=== PATIENT | female | born 1940 | race Caucasian/White ===

== ENCOUNTER → 2018-07-01 | Outpatient (CLI) | payer MEDICARE, BC ==
--- NOTE | 2018-07-14 10:18 | MM ---
Reason for exam: screening (asymptomatic). History: Patient is postmenopausal. Family history of breast cancer in paternal aunt at age 50. MG 3D Screening Mammo W/Cad Bilateral CC and MLO view(s) were taken. There are scattered fibroglandular densities. Enlarging anterior right breast nodule currently measuring 9 mm at the 10 o'clock position. ASSESSMENT: Incomplete: need additional imaging evaluation, BI-RAD 0 RECOMMENDATION: Ultrasound of the right breast.
== END ==
LOC: RADMAMWWP 13:02
PROVIDERS: ATTEND Family Medicine
DX: Z12.31 Encounter for screening mammogram for malignant neoplasm of breast (principal)
CPT/HCPCS: 77063; 77067

== ENCOUNTER → 2018-08-18 | Outpatient (CLI) | payer MEDICARE, BC ==
--- NOTE | 2018-08-18 10:59 | USB ---
Reason for exam: additional evaluation requested from abnormal screening. History: Patient is postmenopausal. Family history of breast cancer in paternal aunt at age 50. Physical Findings: Nurse Summary: palpable lump right breast at 9 o'clock (nurse cw). US Breast Workup Limited RT Right limited breast ultrasound including focal area of concern, retroareolar and axilla demonstrates a 1.0 x 0.7 x 0.6cm oval, mixed, hypoechoic, vascular lesion at 9 o'clock, suspicious and a 1.5 x 1.3 x 0.9cm oval, benign appearing node at the axilla. These results were verbally communicated with the patient and result sheet given to the patient on 08/18/18. ASSESSMENT: Suspicious, BI-RAD 4 RECOMMENDATION: Ultrasound core biopsy of the right breast. Called with mammographic findings and has scheduled an appointment for the patient for 08/21/18 at 11:[address] Huff. PRELIMINARY REPORT CALLED AND FAXED TO DR. HUFF ON 08/18/18.
== END ==
LOC: RADUSWWP 09:23
PROVIDERS: ATTEND Family Medicine
DX: R92.8 Other abnormal and inconclusive findings on diagnostic imaging of breast (principal)

== ENCOUNTER → 2018-09-15 | Day surgery (SDC) | payer MEDICARE, BC ==
[2018-09-15 11:24] VITALS: RESP 16; BMI 66.2
--- NOTE | 2018-09-15 13:12 | USB ---
EXAMINATION TYPE: US biopsy breast VAD RT, MG diagnostic mammo RT wo CAD DATE OF EXAM: 09/15/2018 CLINICAL HISTORY: R92.8 ABN MAMMO. TECHNIQUE: Ultrasound guided core biopsy of right breast. COMPARISON: 08/18/2018 and 07/01/2018. FINDINGS: The procedure of ultrasound guided core biopsy was explained to the patient. Benefits, alternatives, and risks were discussed. An informed consent was then obtained. Preprocedural timeout was performed. The patient was placed in supine positioning for imaging and for the procedure. The overlying skin was prepped and draped in usual sterile fashion. 10 cc of lidocaine buffered with bicarbonate was used as anesthetic into the skin and subcutaneous tissue up to the 1.0 x 0.6 x 0.7 cm mass at the 9:00 position within the right breast just deep to the skin surface. Under ultrasound guidance, a 12-gauge vacuum assisted biopsy gun device was used to obtain 3 core samples. Following this, a ribbon-shaped biopsy marker was left at the site of biopsy. The patient tolerated the procedure well without any immediate complication. The patient was kept in the radiology department for short stay after the procedure and then discharged home in stable condition. Postprocedural mammogram demonstrates that the biopsied mass corresponds to the mammographic mass. No biopsy marker migration is seen. IMPRESSION: Successful, uncomplicated ultrasound guided core biopsy of a 1.0 x 0.6 x 0.7 cm mass at the 9:00 position just deep to the skin surface, full pathology results to follow. 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 See Surgical Pathology Cancer Case Summary. 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 Recommendation Surgical consult of the right breast. CRYSTALD
[2018-09-15 13:31] VITALS: BP 148/66; PULSE 67; TEMP 98.1
== END | disposition home or self-care (01) ==
LOC: RADUSWWP 11:05
PROVIDERS: ATTEND Family Medicine
DX: C50.911 Malignant neoplasm of unspecified site of right female breast (principal)
CPT/HCPCS: 77065; 19083; A4648; J2001; 88305; 88341; 88342

== ENCOUNTER → 2018-09-25 | Outpatient (CLI) | payer MEDICARE, BC ==
[2018-09-25 16:26] VITALS: BP 170/95; PULSE 81; RESP 18; TEMP 98.1; BMI 66.2
--- NOTE | 2018-09-25 16:53 | P.GSHP ---
History of Present Illness H&P Date: 09/25/18 Chief Complaint: right breast cancer Gwendolyn is a 78-year-old white female who presents for breast examination. She underwent a bilateral mammogram on which revealed an area of concern in the right breast. An ultrasound was subsequently performed and the lesion approximately 1 cm in size was identified. A biopsy of this area was performed. The pathology was positive for infiltrating ductal carcinoma. Additionally a small area approximately 1.5 cm in the axilla was noted. This appeared benign radiographically. The patient states that prior to the mammogram she did not feel anything in her breast, however subsequent to the mammogram she does feel some nodularity in her breasts. Family History: dad: stomach 2 paternal aunts: breast paternal aunt: ovarian Hormonal history: Menarche: 14 : 2, children 2, first at 20, breast fed: yes menpause: 49 BCP: short time than tubal only 5 months hormones: none Past surgical history: 1. Tubal ligation Past medical history: Hypertension High cholesterol Social History: smoke: none alcohol: none drugs: none - Constitutional Constitutional: Denies chills, Denies fever - EENT Eyes: denies blurred vision, denies pain Ears: deny: decreased hearing, tinnitus Ears, nose, mouth and throat: Denies headache, Denies sore throat - Breasts Breasts: bilateral: as per HPI - Cardiovascular Cardiovascular: Reports high blood pressure, Denies chest pain, Denies shortness of breath - Respiratory Respiratory: Denies cough, Denies 7 - Gastrointestinal Gastrointestinal: Denies abdominal pain, Denies diarrhea, Denies nausea, Denies vomiting - Genitourinary (Female) Genitourinary: Denies dysuria, Denies hematuria - Menstruation Menstruation: Reports postmenopausal - Musculoskeletal Comment: arthritis - Integumentary Integumentary: Denies pruritus, Denies rash - Neurological Neurological: Denies numbness, Denies weakness - Psychiatric Psychiatric: Denies depression - Endocrine Comment: boarderline diabetic Endocrine: Denies fatigue, Denies weight change - Hematologic/Lymphatic Comment: none - Allergic/Immunologic Allergic/Immunologic: Reports as per HPI Past Medical History Past Medical History: Diabetes Mellitus, Hyperlipidemia, Hypertension History of Any Multi-Drug Resistant Organisms: None Reported Past Surgical History: No Surgical Hx Reported Past Anesthesia/Blood Transfusion Reactions: No Reported Reaction Past Psychological History: No Psychological Hx Reported Smoking Status: Never smoker Past Alcohol Use History: None Reported Past Drug Use History: None Reported Medications and Allergies Home Medications Medication Instructions Recorded Confirmed Type Atenolol/Chlorthalidone 1 each PO DAILY 09/01/18 09/25/18 History [Atenolol-Chlorthalidone 50-25] Moexipril HCl [Univasc] 15 mg PO DAILY 09/01/18 09/25/18 History Simvastatin [Zocor] 20 mg PO HS 09/01/18 09/25/18 History metFORMIN HCL 1,000 mg PO DAILY 09/01/18 09/25/18 History Allergies Allergy/AdvReac Type Severity Reaction Status Date / Time No Known Allergies Allergy Verified 09/25/18 16:26 Surgical - Exam Vital Signs Temp Pulse Resp BP Pulse Ox 98.1 F 81 18 170/95 95 09/25/18 16:22 09/25/18 16:22 09/25/18 16:22 09/25/18 16:22 09/25/18 16:22 BMI 30 - General well developed, well nourished, no distress - Eyes normal ocular movement - ENT no hearing loss, no congestion - Neck no masses, trachea midline - Respiratory normal respiratory effort, clear to auscultation - Cardiovascular Rhythm: regular Heart Sounds: normal: S1, S2 - Abdomen Abdomen: soft, non tender, no guarding, no rigid, no rebound - Integumentary normal turgor - Musculoskeletal normal gait - Psychiatric oriented to time, oriented to person, oriented to place, speech is normal, memory intact breast exam: Right breast: Fibrocystic breast changes, periareolar region at 9:00 increased nodularity, no other dominant masses or nodules of concern Right axilla: No adenopathy of concern Left breast: Fibrocystic breast changes, multiple positional exam no dominant masses or nodules of concern Left axilla: No adenopathy of concern Results Mammogram and ultrasound results reviewed Assessment and Plan Assessment: Impression: 1. Radiographic abnormality right breast, biopsy positive for invasive ductal carcinoma right side 2. Fibrocystic breast changes 3. Family history of cancer 4. Hypertension 5. Borderline diabetes The risks and benefits of surgery have been discussed with the patient. The patient would prefer to have a lumpectomy. She understands that I may have to take a portion of the nipple area complex secondary to the location of the tumor. She also understands the risks and benefits of sentinel node biopsy possible axillary node dissection. She wishes to be scheduled in the near future. Her case will be presented at tumor board. Plan: 1. Presentation of case at tumor board 2. right breast Needle localization lumpectomy, sentinel node biopsy possible axillary node dissection 3. medical clearance cc: DR. Huff
== END ==
LOC: WWCWWP 15:44
PROVIDERS: ATTEND Surgery
DX: Z53.9 Procedure and treatment not carried out, unspecified reason (principal)

== ENCOUNTER 2018-11-09 08:24 | Day surgery (SDC) | payer MEDICARE, BC ==
[2018-11-04 14:46] VITALS: BMI 29.8
[~2018-11-09 08:24] MED LIST: DEXAMETHASONE SOD PHOSPHATE 10 MG/ML 1 ML VIAL IV ONE; HEPARIN SODIUM,PORCINE 5,000 UNIT/ML 1 ML VIAL SQ ONE; HYDROmorphone 0.5 MG/0.5 ML SYRINGE IVP PRN; LACTATED RINGERS 1,000 ML IV SCH; MIDAZOLAM 2 MG/2 ML VIAL IV PRN; ONDANSETRON 4 MG/2 ML VIAL IVP ONE; Pre Op ABX Message 1 EACH MISC MISCELLANE ONE
[2018-11-09] MEDS ORDERED: LIDOCAINE 1% 20 ML VIAL (10MG/ML) FOR IV START INTRADERMA ONE (09:53)
[2018-11-09 09:59] LABS: Glucose,Whole Blood 117 mg/dL (75-99)
[2018-11-09] MEDS ORDERED: ALPRAZolam 0.25 MG TAB PO ONE (10:08)
[2018-11-09] MEDS ORDERED: LIDOCAINE 1% INJ 10MG/ML (20 ML MDV) SQ ONE ×3 (10:25→13:22)
[2018-11-09] MEDS ORDERED: SODIUM BICARB 4% 5 ML VIAL (0.48 MEQ/ML) MISCELLANE ONE (10:25)
[2018-11-09] MEDS ORDERED: HEPARIN SODIUM,PORCINE 5,000 UNIT/ML 1 ML VIAL SQ ONE (10:48)
--- NOTE | 2018-11-09 11:00 | NM ---
EXAMINATION TYPE: NM sentinel node injection DATE OF EXAM: 11/09/2018 COMPARISON: 11/09/2018 mammogram HISTORY: Abnormal right breast biopsy TECHNIQUE AND FINDINGS: The procedure of sentinel lymph node injection was explained to the patient. The benefits, alternatives, and risks were discussed. An informed consent was then obtained. Overlying skin is cleaned with sterile alcohol. Lidocaine buffered with bicarbonate was used as anes thetic into the skin and subcutaneous tissue surrounding the nipple. Following this, 547 uCi Tc 99m Filtered Sulfur Colloid was injected surrounding the outer aspect of the right nipple intradermally. The injection sites were massaged by biotechnologist for 10 minutes after injection. T he patient tolerated the procedure well without any immediate complication. The patient was kept in the radiology department for short stay after the procedure and then taken to surgery for surgical pr ocedure what is presumed intraoperative gamma probe will be used for sentinel lymph node detection. IMPRESSION: Right breast radiotracer injection for sentinel node localization as above.
[2018-11-09] MEDS ORDERED: fentaNYL (PF) 50 MCG/ML 2 ML AMP ONE (11:15)
[2018-11-09] MEDS ORDERED: LIDOCAINE 1% INJ 10MG/ML (20 ML MDV) ONE (11:15)
[2018-11-09] MEDS ORDERED: PROPOFOL 10 MG/ML 20 ML VIAL IV ONE (11:15)
[2018-11-09] MEDS ORDERED: ePHEDrine SULFATE/0.9% NACL/PF 50 MG/5 ML SYRINGE IV ONE (11:15)
[2018-11-09] MEDS ORDERED: MIDAZOLAM 2 MG/2 ML VIAL ONE (11:15)
[2018-11-09] MEDS ORDERED: SODIUM CHLORIDE 0.9% 50 ML with ceFAZolin 1,000 MG IV ONE ×2 (11:30)
[2018-11-09] MEDS ORDERED: LACTATED RINGERS 1,000 ML IV ONE (13:23)
--- NOTE | 2018-11-09 13:31 | P.NAPBC ---
NAPBC Queries - NAPBC Queries Was patient's case review presented at [facility] tumor board? If no, comment.: Yes Was patient's pathology reviewed at [facility]? If no, comment.: Yes Was breast conservation surgery offered? If no, comment.: Yes Was sentinel node biopsy offered? If no, comment.: Yes Was diagnosis confirmed by percutaneous core biopsy? If no, comment.: Yes If mastectomy patient, was a preop referral to a reconstructive surgeon offered?: Yes Clinical Stage: Stage 1A
--- NOTE | 2018-11-09 13:31 | P.OP ---
Date of Procedure: 11/09/18 Preoperative Diagnosis: Right breast cancer Postoperative Diagnosis: Same Procedure(s) Performed: Right needle local lumpectomy, with onco-Plastic tissue transfer and closure, sentinel node biopsy Anesthesia: CHANTEL Surgeon: Janette Brooks Estimated Blood Loss (ml): 8 IV fluids (ml): 650 Pathology: other (sentinal node, lumpectomy with new margins) Condition: stable Disposition: PACU Indications for Procedure: biopsy proven right breast cancer Operative Findings: fatty breast tissue Description of Procedure: The patient is a 78-year-old white female with a biopsy-proven carcinoma of the right breast. After discussion of her options she chose a lumpectomy with sentinel node biopsy. Procedure needle localization of the area of concern in the right breast was performed. The patient had injection of radiotracer in the periareolar area. She was then brought to the operating room. Following induction of anesthesia the right breast was prepped and draped in a sterile fashion. Interrogation of the axilla by the neoprobe revealed that there was radioactivity in the axilla prior to prepping and draping the patient. The axilla was approached initially. Using the neoprobe. Greatest radioactivity was identified. An incision was made in the axilla and carried to the area of greatest radioactivity. A radioactive lymph node was identified. The 10 second count on the lymph node was approximately 940. The background radioactive count of the axilla was approximately 20 at 10 seconds. No other adenopathy which was suspicious was identified. This node was sent for frozen section evaluation. Frozen section there was no tumor identified. After assured that hemostasis was attained the deeper tissues were closed using a 3-0 Vicryl suture. The skin was closed using a 4-0 Monocryl. Steri-Strips applied. The patient tolerated this portion of the procedure in stable condition. Following this the lumpectomy portion was performed. A circumareolar incision was made and carried down to the shaft of the needle. This was dissected medially being careful to remove the area of the tumor en bloc. The tumor however appeared to be very close to the skin anteriorly and therefore anterior skin was removed. The anterior margin. Likewise after the specimen was removed the patient was noted to have approximated lesion and superior and inferiorly and additional margins were obtained posterior inferior superior and inferiorly. Additional margin was also obtained laterally. Posteriorly the dissection was carried through the muscle of the chest wall. The specimen was painted for orientation and sent to radiology for radiograph the specimen revealed the area of concern had been removed. After assured that hemostasis was attained the wound was well irrigated. Tissue mobilization in the anterior tissue plane as well as the posterior pectoral fascia tissue plane was performed. Approximately 30 cm of tissue were mobilized. The tissue layers were then brought to the area together and secured in place using a Vicryl suture. This closed the defect from the lumpectomy. The cavity was marked using titanium clips prior to this mobilization. Following this the subcutaneous tissues were closed with 3-0 Vicryl suture. The skin was closed with a 4-0 Monocryl. The patient tolerated the procedure in stable condition. All instrument and sponge counts were correct at the end of the case.
--- NOTE | 2018-11-09 13:33 | P.DS ---
Providers Attending physician: Janette Brooks Primary care physician: Daniel Huff Plan - Discharge Summary Discharge Rx Participant: Yes New Discharge Prescriptions: No Action Simvastatin [Zocor] 20 mg PO HS Moexipril HCl [Univasc] 15 mg PO DAILY metFORMIN HCL 500 mg PO HS Atenolol/Chlorthalidone [Atenolol-Chlorthalidone 50-25] 1 each PO DAILY Discharge Medication List Atenolol/Chlorthalidone [Atenolol-Chlorthalidone 50-25] 1 each PO DAILY 09/01/18 [History] Moexipril HCl [Univasc] 15 mg PO DAILY 09/01/18 [History] Simvastatin [Zocor] 20 mg PO HS 09/01/18 [History] metFORMIN HCL 500 mg PO HS 09/01/18 [History] Follow up Appointment(s)/Referral(s): Janette Brooks MD [STAFF PHYSICIAN] - 1 Week Activity/Diet/Wound Care/Special Instructions: do not drive today wear bra at all times may shower after 48 hours Discharge Disposition: HOME SELF-CARE
--- NOTE | 2018-11-09 13:34 | MM ---
EXAMINATION TYPE: MG surgical specimen RT DATE OF EXAM: 11/09/2018 COMPARISON: 11/09/2018 CLINICAL HISTORY: Right breast abnormal mammogram and biopsy TECHNIQUE: Needle localization with wire placement and surgical excision of area of concern in the right breast. FINDINGS: The procedure of needle localization with wire placement and than surgical excision was explained to the patient. Benefits, alternatives, and risks were discussed. An informed consent was then obtained. The shortest pathway for procedure was chosen. Shortest pathway was lateral approach. The overlying skin was prepped and draped in usual sterile fashion. Lidocaine buffered with bicarbonate was used as anesthetic into the skin and subcutaneous tissue up to the level of area of concern. A 5 cm needle was used. It was placed via a lateral approach under mammographic guidance. Subsequent 90 degrees mammogram show the needle to be in satisfactory position relative to the targeted area. At this point, wire was placed and the needle was withdrawn. The wire was fixed to patient's skin. Images were marked for surgeon. The patient tolerated the procedure well without any immediate complication. The patient was kept in the radiology department for short stay after the procedure and then taken to surgery for surgical excision. Surgical clip and wire are identified in specimen mammogram. The patient was kept in hospital for short stay after the procedure and then discharged home in stable condition. IMPRESSION: Successful, uncomplicated needle localization with wire placement and surgical excision of surgical clip in the right breast, full pathology results to follow. Pathology Results: Malignant A. RIGHT AXILLA SENTINEL NODE, BIOPSY: Lymph node with extensive fat replacement, negative for metastasis. CK7 and MARIE immunoperoxidase stains are confirmatory (controls appropriate). B. RIGHT BREAST, LUMPECTOMY: Invasive mucinous carcinoma, tumor closely approximates the orange inked/lateral margin (tumor immediately adjacent to the lateral margin). See Surgical Pathology Cancer Case Summary. C. RIGHT AXILLARY CONTENTS: Four lymph nodes with extensive fat replacement, negative for metastasis. D. RIGHT BREAST, EXTERNAL SURFACE OF NEW LATERAL MARGIN, EXCISION: Benign breast with fibrocystic changes. E. RIGHT BREAST, NEW POSTERIOR MARGIN, EXCISION: Benign breast with fibrocystic changes and duct ectasia. Sclerotic intraductal papilloma not involving the resection margin. F. RIGHT BREAST, NEW ANTERIOR MARGIN, EXCISION: Benign skin and subcutaneous tissue. G. RIGHT BREAST, NEW SUPERIOR MARGIN, EXCISION: Benign breast with prominent adipose tissue and fibrocystic changes. H. RIGHT BREAST, NEW INFERIOR MARGIN, EXCISION: Benign breast with fibrocystic changes. Recommendation Surgical consult of the right breast. Continued surgical management. CRYSTALD
[2018-11-09 13:43] VITALS: TEMP 97.1
[2018-11-09 14:51] VITALS: RESP 18
[2018-11-09 15:03] VITALS: BP 144/83; PULSE 89
== END 2018-11-09 15:37 | disposition home or self-care (01) ==
LOC: OR 08:24
PROVIDERS: ATTEND Surgery
DX: C50.911 Malignant neoplasm of unspecified site of right female breast (principal); N60.11 Diffuse cystic mastopathy of right breast; I10 Essential (primary) hypertension; Z78.0 Asymptomatic menopausal state; E11.9 Type 2 diabetes mellitus without complications; E78.5 Hyperlipidemia, unspecified; Z79.84 Long term (current) use of oral hypoglycemic drugs; Z79.899 Other long term (current) drug therapy; Z98.51 Tubal ligation status
CPT/HCPCS: 19301; 38500; 88342; 88331; 88307; 88341; 76098; 19281; 38792; A9520; J2250; J1644; J1100; J2405; J0690; J2001; J3010; J2704

== ENCOUNTER → 2018-11-13 | Outpatient (CLI) | payer MEDICARE, BC ==
[2018-11-13 10:46] VITALS: BP 185/93; PULSE 69; RESP 20; TEMP 98.2; BMI 29.7
--- NOTE | 2018-11-13 10:57 | P.PN ---
Progress Note - Text Progress Note Date: 11/13/18 Gwendolyn is a 78-year-old white female status post right breast lumpectomy and sentinel node biopsy. Pathology showed negative margins and sentinel node was negative for malignancy. She has no complaints postprocedure has not even taken any pain medication. She is doing well at this time. Physical exam: Lungs: Clear Heart: S1 and S2 Incision: Clean and dry Evidence of any infection in the axilla or in the periareolar area Impression: 1. Stage IA grade breast cancer completely excised Plan: 1. Appointment with medical oncology 2. Appointment with radiation oncology 3. Follow-up care in 4 months time CC: Dr. Handy
== END | disposition home or self-care (01) ==
LOC: WWCWWP 09:39
PROVIDERS: ATTEND Surgery
DX: Z53.9 Procedure and treatment not carried out, unspecified reason (principal)

== ENCOUNTER → 2019-03-19 | Outpatient (CLI) | payer MEDICARE, BC ==
[2019-03-19 10:51] VITALS: BP 169/89; PULSE 63; RESP 18; TEMP 97.7
--- NOTE | 2019-03-19 11:11 | P.PN ---
Subjective Progress Note Date: 03/19/19 CC: personal history of bresat cancer Gwendolyn is an 79-year-old white female who is status post a right breast lumpectomy and sentinel node biopsy on 11-09-18. This was a stage I a, T1b, N0, M0, G1, HER-2 negative, ER positive, OR positive breast cancer. She was seen by both medical and radiation oncology but opted not to have any radiation therapy, she also did not have any chemo or hormonal therapy. She is doing well at this time with no complaints related to her breast. Her bilateral mammogram had been in June 2018. Her surgery was in October 2018. She will be due for breast repeat mammogram in April 2019. The patient does not complain of any breast pain. She has no nipple discharge or skin changes for which she is concerned. Family history: Father: Stomach cancer 2 paternal aunts: Breast cancer Paternal: Ovarian cancer patient: right breast cancer Hormonal history: Menarche: 14 Pregnancies: , first at 20, breast fed: Yes Menopause: 49 control pills: 5 months Hormones: None Past surgical history: 1. Tubal ligation 2. right breast lumpectomy and sentinel node biopsy Past medical history: 1. Hypertension 2. High cholesterol Social history: Smoking: Negative Alcohol: Negative Drugs: Negative - Constitutional Constitutional: Denies chills, Denies fever - EENT Eyes: denies blurred vision, denies pain Ears: deny: decreased hearing, tinnitus Ears, nose, mouth and throat: Denies headache, Denies sore throat - Breasts Breasts: bilateral: as per HPI - Cardiovascular Cardiovascular: Reports high blood pressure, Denies chest pain, Denies shortness of breath - Respiratory Respiratory: Denies cough, - Gastrointestinal Gastrointestinal: Denies abdominal pain, Denies diarrhea, Denies nausea, Denies vomiting - Genitourinary (Female) Genitourinary: Denies dysuria, Denies hematuria - Menstruation Menstruation: Reports postmenopausal - Musculoskeletal Comment: arthritis - Integumentary Integumentary: Denies pruritus, Denies rash - Neurological Neurological: Denies numbness, Denies weakness - Psychiatric Psychiatric: Denies anxiety, Denies depression - Endocrine Comment: Borderline diabetic Endocrine: Denies fatigue, Denies weight change - Hematologic/Lymphatic Comment: none - Allergic/Immunologic Allergic/Immunologic: Reports as per HPI Past Medical History Past Medical History: Diabetes Mellitus, Hyperlipidemia, Hypertension History of Any Multi-Drug Resistant Organisms: None Reported Past Surgical History: No Surgical Hx Reported Past Anesthesia/Blood Transfusion Reactions: No Reported Reaction Past Psychological History: No Psychological Hx Reported Smoking Status: Never smoker Past Alcohol Use History: None Reported Past Drug Use History: None Reported Objective - Vital Signs Vital signs: Vital Signs Temp 97.7 F 03/19/19 10:48 Pulse 63 03/19/19 10:48 Resp 18 03/19/19 10:48 BP 169/89 03/19/19 10:48 Pulse Ox 97 03/19/19 10:48 Intake & Output 03/18/19 03/19/19 03/19/19 18:59 06:59 18:59 Weight 79.379 kg - Exam BMI 30 - Constitutional General appearance: Present: obese - EENT Eyes: Present: EOMI ENT: Present: hearing grossly normal - Neck Neck: Present: normal ROM - Respiratory Respiratory: bilateral: CTA - Cardiovascular Rhythm: regular Heart sounds: normal: S1, S2 - Integumentary Integumentary: Present: normal turgor - Musculoskeletal Musculoskeletal: Present: gait normal - Psychiatric Psychiatric: Present: A&O x's 3, appropriate affect, intact judgment & insight - Additional findings Additional findings: Breast examination: Right breast: Multiple positional exam no dominant masses or nodules of concern, slight asymmetry to the contralateral breast secondary to some scarring from the lumpectomy, scar well healed Right axilla: No adenopathy of concern Left breast: Multiple positional exam no dominant masses or nodules of concern, fibrocystic changes noted Left axilla: No adenopathy of concern Assessment and Plan Assessment: Impression: 1. Personal history of stage IA right breast cancer no evidence of recurrence 2. Slight asymmetry of the breast related to lumpectomy 3. Fibrocystic breast changes 4. Family history of breast cancer 5. Family history of cancer 6. Hypertension 7. High cholesterol Plan: 1. Repeat right breast mammogram in April with physician exam at that time they will be approximately 5 months from her lumpectomy 2. Bilateral mammogram will be to June as she will just have had a right breast mammogram almost likely just at the left breast mammogram in June and then try to coordinate so both breasts are done at the same time 3. Medical management of medical conditions 4. Patient was seen by medical and radiation oncology and after consideration decided not to have any radiation or chemo or hormonal therapy we will continue close surveillance CC:Dr. Huff
== END ==
LOC: WWCWWP 10:25
PROVIDERS: ATTEND Surgery
DX: Z53.9 Procedure and treatment not carried out, unspecified reason (principal)

== ENCOUNTER → 2019-05-24 | Outpatient (CLI) | payer MEDICARE, BC ==
--- NOTE | 2019-05-24 11:59 | MM ---
Reason for exam: follow-up at short interval from prior study. Last mammogram was performed 8 months ago. History: Patient is postmenopausal and has history of breast cancer at age 78. Family history of breast cancer in paternal aunt at age 50. Malignant MG pre op needle loc RT of the right breast, November 09, 2018. Lumpectomy of the right breast, November 09, 2018. Malignant US biopsy breast VAD RT of the right breast, September 15, 2018. Physical Findings: Nurse did not find any significant physical abnormalities on exam. MG 3D Diag Mammo W/Cad RT CC and MLO view(s) were taken of the right breast. Prior study comparison: September 15, 2018, right breast MG diagnostic mammo RT wo CAD. July 01, 2018, bilateral MG 3d screening mammo w/cad. There are scattered fibroglandular densities. Finding #1: There is new fat necosis and architectural distortion in the central position of the right breast. Finding #2: There are typically benign vascular calcifications in the right breast. There is no discrete abnormality. These results were verbally communicated with the patient and result sheet given to the patient on 05/24/19. ASSESSMENT: Benign, BI-RAD 2 RECOMMENDATION: Follow-up diagnostic mammogram of both breasts in 1 month. Back on schedule.
== END ==
LOC: RADMAMWWP 10:48
PROVIDERS: ATTEND Surgery
DX: Z08 Encounter for follow-up examination after completed treatment for malignant neoplasm (principal); Z85.3 Personal history of malignant neoplasm of breast
CPT/HCPCS: 77065; G0279; 77061

== ENCOUNTER → 2019-06-03 | Outpatient (CLI) | payer MEDICARE, BC ==
[2019-06-03 10:31] VITALS: BP 170/82; PULSE 68; RESP 18; TEMP 97.6
--- NOTE | 2019-06-03 17:20 | P.PN ---
Subjective Progress Note Date: 06/03/19 Principal diagnosis: stage I a right breast cancer Gwendolyn is an 79-year-old white female who is status post a right breast lumpectomy and sentinel node biopsy on . This was a stage I aT1b, N0, M0, G1, HER-2 negative, ER positive, OH positive breast cancer. She was seen by both medical and radiation oncology but opted not to have any radiation therapy. She also did not have any chemo or hormonal therapy. She is doing well at this time with no complaints related to her breasts. she had mammogram of the right breast performed on . This was felt to be benign BIRADS 2. She will have a left breast mammogram in 1 month and if this is normal follow-up bilateral mammogram in a year. Family history: Father: Stomach cancer 2 paternal aunts: Breast cancer Patient: Right breast cancer Hormonal history: T: 14 Pregnancies: Menopause: 49 control pills: 5 months Hormones: None Past surgical history: 1. Tubal ligation 2. Right breast lumpectomy sentinel node biopsy Medical history: 1. Hypertension 2. High cholesterol Social history: Smoking: Negative Alcohol: Negative Drugs: Negative Objective - Vital Signs Vital signs: Vital Signs Temp 97.6 F 06/03/19 10:28 Pulse 68 06/03/19 10:28 Resp 18 06/03/19 10:28 BP 170/82 06/03/19 10:28 Pulse Ox 98 06/03/19 10:28 Intake & Output 06/02/19 06/03/19 06/03/19 18:59 06:59 18:59 Weight 75.296 kg - Exam BMI 28.5 - Constitutional General appearance: Present: average body habitus - EENT Eyes: Present: EOMI ENT: Present: hearing grossly normal - Respiratory Respiratory: bilateral: CTA - Cardiovascular Rhythm: regular Heart sounds: normal: S1, S2 - Psychiatric Psychiatric: Present: A&O x's 3, appropriate affect, intact judgment & insight - Additional findings Additional findings: breasts examination Right breast well-healed scars status post lumpectomy no dominant masses or nodules of concern Left breast: No dominant masses or nodules of concern Right axilla: No adenopathy of concern Left axilla: No adenopathy of concern Assessment and Plan Assessment: impression: 1. Patient status post right breast lumpectomy and sentinel node biopsy for stage I a breast cancer performed on . Patient at this time with no evidence of recurrent disease 2. Recent right breast mammogram benign BIRADS 2 3. Patient is a left breast mammogram in June 2019 Plan: 1. Left breast mammogram June 2019. Examination at that time Cc: Encounter: approximately 20 minutes: Greater than 50% of the time spent in planning and counseling
== END | disposition home or self-care (01) ==
LOC: WWCWWP 10:19
PROVIDERS: ATTEND Surgery
DX: Z53.9 Procedure and treatment not carried out, unspecified reason (principal)

== ENCOUNTER → 2019-07-20 | Outpatient (CLI) | payer MEDICARE, BC ==
--- NOTE | 2019-07-21 09:14 | MM ---
Reason for exam: additional evaluation requested from prior study. Last mammogram was performed 2 months ago. History: Patient is postmenopausal and has history of breast cancer at age 78. Family history of breast cancer in paternal aunt at age 50. Malignant MG pre op needle loc RT of the right breast, November 09, 2018. Lumpectomy of the right breast, November 09, 2018. Malignant US biopsy breast VAD RT of the right breast, September 15, 2018. Physical Findings: Nurse Summary: 1.5cm nodule in the right breast at 10 o'clock (nurse kp). MG 3D Diag Mammo W/Cad LT CC and MLO view(s) were taken of the left breast. Prior study comparison: May 24, 2019, right breast MG 3d diag mammo w/cad RT. September 15, 2018, right breast MG diagnostic mammo RT wo CAD. There are scattered fibroglandular densities. There are benign appearing stable round oval circumscribed scattered left masses. Benign appearing calcifications in the left breast. These results were verbally communicated with the patient and result sheet given to the patient on 07/20/19. ASSESSMENT: Incomplete: need additional imaging evaluation, BI-RAD 0 RECOMMENDATION: Ultrasound. (right, pain)
--- NOTE | 2019-07-21 09:16 | USB ---
Reason for exam: additional evaluation requested from abnormal screening. History: Patient is postmenopausal and has history of breast cancer at age 78. Family history of breast cancer in paternal aunt at age 50. Malignant MG pre op needle loc RT of the right breast, November 09, 2018. Lumpectomy of the right breast, November 09, 2018. Malignant US biopsy breast VAD RT of the right breast, September 15, 2018. US Breast Limited RT Right limited breast ultrasound including focal area of concern, retroareolar and axilla demonstrates a 19 x 9 x 17mm oval, solid, hyperechoic lesion at 10 o'clock bruise. These results were verbally communicated with the patient and result sheet given to the patient on 07/20/19. ASSESSMENT: Benign, BI-RAD 2 RECOMMENDATION: Follow-up diagnostic mammogram of both breasts in 1 year. Manage on a clinical basis with regard to hematoma with overlying ecchymosis after fall. Repeat ultrasound recommended if no clinical resolution in 3 months.
== END | disposition home or self-care (01) ==
LOC: RADMAMWWP 10:51
PROVIDERS: ATTEND Surgery
DX: N63.10 Unspecified lump in the right breast, unspecified quadrant (principal); Z85.3 Personal history of malignant neoplasm of breast
CPT/HCPCS: 77065; 76642; G0279; 77061

== ENCOUNTER → 2019-07-23 | Outpatient (CLI) | payer MEDICARE, BC ==
[2019-07-23 10:50] VITALS: BP 142/84; PULSE 66; RESP 18; TEMP 97.6
--- NOTE | 2019-07-23 11:37 | P.PN ---
Subjective Progress Note Date: 07/23/19 Principal diagnosis: Stage 1A right breast cancer/ 11/09/18 Gwendolyn is an 79-year-old white female who is status post a right breast lumpectomy and sentinel node biopsy on . This was a stage I aT1b, N0, M0, G1, HER-2 negative, ER positive, MD positive breast cancer. She was seen by both medical and radiation oncology but opted not to have any radiation therapy. She also did not have any chemo or hormonal therapy. She is doing well at this time with no complaints related to her breasts. she had mammogram of the right breast performed on . This was felt to be benign BIRADS 2[place] [id number]. This was benign however, a right chest wall ultrasound was recommended. Reason for this was secondary to the fact that the patient had fallen and developed a hematoma and ecchymosis of the right breast/chest wall. The patient underwent an ultrasound and this was felt to show a 19 x 17 mm oval solid hypoechoic lesion at 10:00 related to a bruise. Was felt to be most likely benign BIRADS 2 and follow-up diagnostic mammogram of both breasts in 1 year. This area of lesion was felt to be a hematoma. This is felt to be related to a recent fall. Repeat ultrasound in 3 months if the area has not clinically resolved. Patient was working outside and fell and hit her right breast and chest wall. She had a bruise and her rib was sore, it is getting better. Shortly after she had a mammogram and that's when the finding of questionable hematoma was noted. Family history: Father: Stomach cancer 2 paternal aunts: Breast cancer Patient: Right breast cancer Hormonal history: T: 14 Pregnancies: Menopause: 49 control pills: 5 months Hormones: None Past surgical history: 1. Tubal ligation 2. Right breast lumpectomy sentinel node biopsy Medical history: 1. Hypertension 2. High cholesterol ROS: HEENT: none Lung: none heart: HTN GI: none : none Musculoskeletal: Arthritis Neurologic: Negative Psychiatric: none Hematologic: Negative allergies: none Social history: Smoking: Negative Alcohol: Negative Drugs: Negative Objective - Vital Signs Vital signs: Vital Signs Temp 97.6 F 07/23/19 10:46 Pulse 66 07/23/19 10:46 Resp 18 07/23/19 10:46 BP 142/84 07/23/19 10:46 Pulse Ox 98 07/23/19 10:46 Intake & Output 07/22/19 07/23/19 07/23/19 18:59 06:59 18:59 Weight 76.204 kg - Exam BMI 28.8 - Constitutional General appearance: Present: average body habitus - EENT Eyes: Present: EOMI ENT: Present: hearing grossly normal - Neck Details: no adenopathy of concern Neck: Present: normal ROM - Respiratory Respiratory: bilateral: CTA - Cardiovascular Rhythm: regular Heart sounds: normal: S1, S2 - Integumentary Integumentary: Present: normal turgor - Musculoskeletal Musculoskeletal: Present: gait normal - Psychiatric Psychiatric: Present: A&O x's 3, appropriate affect, intact judgment & insight - Additional findings Additional findings: Breast examination: Right breast: Ecchymosis near area were patient fell, 5 cystic changes on exam, area of approximately 3 x 2 cm the induration near area of ecchymosis also near area of prior scar felt most likely to be secondary to hematoma Right axilla: No adenopathy of concern left breast: Multi-positional exam no dominant masses or nodules of concern Left axilla: No adenopathy of concern Assessment and Plan Assessment: Impression: 1. Patient status post right breast lumpectomy and sentinel node biopsy for stage I a right breast cancer [id number]. Patient at this time no evidence of recurrent disease but has a area of nodularity believed to be related to a hematoma near her scar 2. Recent trauma to right breast 3. Left breast mammogram benign June 2019 4. Fibrocystic breast changes Plan: 1. Repeat right breast ultrasound and exam in 3 months time 2. Repeat bilateral mammogram June 2020 3. Physician exam for breast at 6 months for cancer surveillance CC: Dr. Huff encounter 25 minutes, > 50% of time in panning and counselling
== END | disposition home or self-care (01) ==
LOC: WWCWWP 10:37
PROVIDERS: ATTEND Surgery
DX: Z53.9 Procedure and treatment not carried out, unspecified reason (principal)

== ENCOUNTER → 2020-10-25 | Outpatient (CLI) | payer MEDICARE, BC ==
--- NOTE | 2020-10-25 14:58 | MM ---
Reason for exam: additional evaluation requested from prior study. Last mammogram was performed 1 year and 3 months ago. History: Patient is postmenopausal and has history of breast cancer at age 78. Family history of breast cancer in paternal aunt at age 50. Malignant MG pre op needle loc RT of the right breast, November 09, 2018. Lumpectomy of the right breast, November 09, 2018. Malignant US biopsy breast VAD RT of the right breast, September 15, 2018. Physical Findings: Nurse did not find any significant physical abnormalities on exam. MG 3D Diag Mammo W/Cad NELLIE Bilateral CC and MLO view(s) were taken. Prior study comparison: July 20, 2019, left breast MG 3d diag mammo w/cad LT. May 24, 2019, right breast MG 3d diag mammo w/cad RT. The breast tissue is heterogeneously dense. This may lower the sensitivity of mammography. Stable post lumpectomy changes right breast. No suspicious masses. No significant new findings when compared with previous films. These results were verbally communicated with the patient and result sheet given to the patient on 10/25/20. ASSESSMENT: Benign, BI-RAD 2 RECOMMENDATION: Follow-up diagnostic mammogram of both breasts in 1 year.
== END | disposition home or self-care (01) ==
LOC: RADMAMWWP 14:02
PROVIDERS: ATTEND Family Medicine
DX: R92.2 Inconclusive mammogram (principal); Z85.3 Personal history of malignant neoplasm of breast; Z78.0 Asymptomatic menopausal state; Z80.3 Family history of malignant neoplasm of breast
CPT/HCPCS: 77066; G0279; 77062

== ENCOUNTER → 2021-11-21 | Outpatient (CLI) | payer MEDICARE, BC ==
--- NOTE | 2021-11-22 11:33 | MM ---
Reason for Exam: Screening (asymptomatic). Last mammogram was performed 1 year(s) and 1 month(s) ago. Patient History: Menarche at age 12. First Full-Term at age 20. Postmenopausal. Breast cancer, age 78. 11/09/2018, Lumpectomy on the Right side. 11/09/2018, Malignant Core Biopsy on the right side. 09/15/2018, Malignant Core Biopsy on the right side. Paternal aunt had breast cancer, age 50. Prior Study Comparison: 05/24/2019 Right Diagnostic Mammogram, [facility]. 07/20/2019 Left Diagnostic Mammogram, [facility]. 10/25/2020 Bilateral Diagnostic Mammogram, [facility]. Tissue Density: There are scattered fibroglandular densities. Findings: Analyzed By CAD. No significant changes when compared with prior studies. Post surgical and post treatment changes right breast. Chronic nodularity lateral left breast. Benign vascular calcifications on both sides. Overall Assessment: Benign, BI-RAD 2 Management: Diagnostic Mammogram of both breasts in 1 year. Electronically signed and approved by: Dylan Butler M.D. Radiologist
== END | disposition home or self-care (01) ==
LOC: RADMAMWWP 11:25
PROVIDERS: ATTEND Family Medicine
DX: Z12.31 Encounter for screening mammogram for malignant neoplasm of breast (principal)
CPT/HCPCS: 77063; 77067

== ENCOUNTER → 2022-11-26 | Outpatient (CLI) | payer MEDICARE, BC ==
--- NOTE | 2022-11-27 11:37 | MM ---
Reason for Exam: Screening (asymptomatic). Last screening mammogram was performed 12 month(s) ago. Patient History: Menarche at age 12. First Full-Term at age 20. Postmenopausal. Breast cancer, age 78. 11/09/2018, Lumpectomy on the Right side. 11/09/2018, Malignant Core Biopsy on the right side. 09/15/2018, Malignant Core Biopsy on the right side. Paternal aunt had breast cancer, age 50. Prior Study Comparison: 07/20/2019 Left Diagnostic Mammogram, [facility]. 10/25/2020 Bilateral Diagnostic Mammogram, [facility]. 11/21/2021 Bilateral MG 3D screening mammo w/cad, [facility]. Tissue Density: There are scattered fibroglandular densities. Findings: Analyzed By CAD. Stable small circumscribed rounded and oval masses in the left breast. Persistent vascular calcification in the left breast. Persistent surgical change with clips and distortion in the middle depth left breast. New indistinct grouped calcifications anterior to this and just inferior to this noted. Overall Assessment: Incomplete: need additional imaging evaluation, BI-RAD 0 Management: Special View Mammogram of the right breast. Return for additional spot magnification and true lateral views of the right breast. Patient should continue monthly self-breast exams. A clinical breast exam by your physician is recommended on an annual basis. This exam should not preclude additional follow-up of suspicious palpable abnormalities. Note on Jaylin scores and lifetime risk: 1. A Jaylin score greater than 3% is considered moderate risk. If this is the case, consider specialist referral to assess eligibility for a risk reducing agent. 2. If overall lifetime risk for the development of breast cancer is 20% or higher, the patient may qualify for future screening with alternating mammogram and breast MRI. Electronically signed and approved by: Ayo Owens M.D.
== END | disposition home or self-care (01) ==
LOC: RADMAMWWP 10:24
PROVIDERS: ATTEND Family Medicine
DX: Z12.31 Encounter for screening mammogram for malignant neoplasm of breast (principal); Z78.0 Asymptomatic menopausal state; Z80.3 Family history of malignant neoplasm of breast
CPT/HCPCS: 77063; 77067

== ENCOUNTER → 2022-11-29 | Outpatient (CLI) | payer MEDICARE, BC ==
--- NOTE | 2022-11-29 10:42 | MM ---
Reason for Exam: Additional evaluation requested from abnormal screening. Last screening mammogram was performed less than 1 month ago. Patient History: Menarche at age 12. First Full-Term at age 20. Postmenopausal. Breast cancer, right, age 78. 11/09/2018, Lumpectomy on the Right side. 11/09/2018, Malignant Core Biopsy on the right side. 09/15/2018, Malignant Core Biopsy on the right side. Paternal aunt had breast cancer, age 50. Prior Study Comparison: 09/15/2018 Right Diagnostic Mammogram, [facility]. 05/24/2019 Right Diagnostic Mammogram, [facility]. 11/21/2021 Bilateral MG 3D screening mammo w/cad, [facility]. 11/26/2022 Bilateral MG 3D screening mammo w/cad, [facility]. Tissue Density: Right: There are scattered fibroglandular densities. Findings: Analyzed By CAD. Postsurgical clips in the right breast there are grouped calcifications in the slightly inferior and anterior to the surgical clips. Findings are favored represent post biopsy changes possibly fat necrosis. No new suspicious masses, calcifications or distortions. Overall Assessment: Probably benign, BI-RAD 3 Management: Diagnostic Mammogram of the right breast in 6 months. Results were given to the patient verbally at the time of exam. Patient should continue monthly self-breast exams. A clinical breast exam by your physician is recommended on an annual basis. This exam should not preclude additional follow-up of suspicious palpable abnormalities. Note on Jaylin scores and lifetime risk: 1. A Jaylin score greater than 3% is considered moderate risk. If this is the case, consider specialist referral to assess eligibility for a risk reducing agent. 2. If overall lifetime risk for the development of breast cancer is 20% or higher, the patient may qualify for future screening with alternating mammogram and breast MRI. Electronically signed and approved by: Carroll Chan DO
== END | disposition home or self-care (01) ==
LOC: RADMAMWWP 09:38
PROVIDERS: ATTEND Family Medicine
DX: R92.8 Other abnormal and inconclusive findings on diagnostic imaging of breast (principal); Z78.0 Asymptomatic menopausal state; Z80.3 Family history of malignant neoplasm of breast; Z85.3 Personal history of malignant neoplasm of breast
CPT/HCPCS: 77065; G0279; 77061

== ENCOUNTER → 2023-06-27 | Outpatient (CLI) | payer MEDICARE, BC ==
--- NOTE | 2023-06-27 10:58 | MM ---
Reason for Exam: Follow-up at short interval from prior study. Last screening mammogram was performed 7 month(s) ago. Patient History: Menarche at age 12. First Full-Term at age 20. Postmenopausal. Breast cancer, right, age 78. 11/09/2018, Lumpectomy on the Right side. 11/09/2018, Malignant Core Biopsy on the right side. 09/15/2018, Malignant Core Biopsy on the right side. Paternal aunt had breast cancer, age 50. Prior Study Comparison: 11/21/2021 Bilateral MG 3D screening mammo w/cad, [facility]. 11/26/2022 Bilateral MG 3D screening mammo w/cad, [facility]. 11/29/2022 Right MG 3D work up w/cad RT, [facility]. Tissue Density: Right: There are scattered fibroglandular densities. Findings: Analyzed By CAD. Pattern appears stable. Multiple calcifications from prior surgery are within the mid middle right breast. A few punctate calcifications are stable within the more anterior right breast. These appear stable. Overall Assessment: Benign, BI-RAD 2 Management: Screening Mammogram of both breasts in 6 months. A negative mammogram report should not preclude additional follow up of suspicious palpable abnormalities. Patient should continue monthly self breast exam. A clinical breast exam by your physician is recommended on an annual basis and results should be correlated with mammographic findings. Electronically signed and approved by: Flash Roberts D.O. Radiologis
== END | disposition home or self-care (01) ==
LOC: RADMAMWWP 10:24
PROVIDERS: ATTEND Family Medicine
DX: R92.321 Mammographic fibroglandular density, right breast (principal); Z80.3 Family history of malignant neoplasm of breast; Z78.0 Asymptomatic menopausal state
CPT/HCPCS: 77065; G0279; 77061

== ENCOUNTER → 2024-01-02 | Outpatient (CLI) | payer MEDICARE, BC ==
--- NOTE | 2024-01-06 16:26 | MM ---
Reason for Exam: Screening (asymptomatic). Last mammogram was performed 1 year(s) and 1 month(s) ago. Patient History: Menarche at age 12. First Full-Term at age 20. Postmenopausal. Patient has history of breast feeding. Breast cancer, right, age 78. 11/09/2018, Lumpectomy on the Right side. 11/09/2018, Malignant Core Biopsy on the right side. 09/15/2018, Malignant Core Biopsy on the right side. Paternal aunt had breast cancer, age 50. Prior Study Comparison: 07/01/2018 Bilateral Screening Mammogram, [facility]. 09/15/2018 Right Diagnostic Mammogram, [facility]. 05/24/2019 Right Diagnostic Mammogram, [facility]. 07/20/2019 Left Diagnostic Mammogram, [facility]. 07/20/2019 Right Diagnostic Ultrasound, [facility]. 10/25/2020 Bilateral Diagnostic Mammogram, [facility]. 11/21/2021 Bilateral MG 3D screening mammo w/cad, [facility]. 11/26/2022 Bilateral MG 3D screening mammo w/cad, [facility]. 11/29/2022 Right MG 3D work up w/cad RT, [facility]. 06/27/2023 Right MG 3D diag mammo w/cad RT, [facility]. Tissue Density: There are scattered areas of fibroglandular density. Findings: Analyzed By CAD. The pattern is stable. Prior right breast lumpectomy. Focal asymmetry in the left breast. Vascular calcification is present bilaterally. No significant interval change. No suspicious groups of microcalcifications, spiculated or lobular masses, architectural distortion or other secondary signs of malignancy are mammographically apparent. Overall Assessment: Benign, BI-RAD 2 Management: Screening Mammogram of both breasts in 1 year. A negative mammogram report should not preclude additional follow up of suspicious palpable abnormalities. Patient should continue monthly self breast exam. A clinical breast exam by your physician is recommended on an annual basis and results should be correlated with mammographic findings. Note on Jaylin scores and lifetime risk: 1. A Jaylin score greater than 3% is considered moderate risk. If this is the case, consider specialist referral to assess eligibility for a risk reducing agent. 2. If overall lifetime risk for the development of breast cancer is 20% or higher, the patient may qualify for future screening with alternating mammogram and breast MRI. Electronically signed and approved by: Flash Roberts D.O. Radiologis
== END | disposition home or self-care (01) ==
LOC: RADMAMWWP 09:18
PROVIDERS: ATTEND Family Medicine
DX: Z12.31 Encounter for screening mammogram for malignant neoplasm of breast (principal); Z78.0 Asymptomatic menopausal state; Z80.3 Family history of malignant neoplasm of breast
CPT/HCPCS: 77063; 77067

== ENCOUNTER → 2025-01-18 | Outpatient (CLI) | payer MEDICARE, BC ==
--- NOTE | 2025-01-18 17:39 | MM ---
Reason for Exam: Screening (asymptomatic). Last screening mammogram was performed 12 month(s) ago. Patient History: Menarche at age 12. First Full-Term at age 20. Postmenopausal. Patient has history of breast feeding. Breast cancer, right, age 78. 11/09/2018, Lumpectomy on the Right side. 11/09/2018, Malignant Core Biopsy on the right side. 09/15/2018, Malignant Core Biopsy on the right side. Paternal aunt had breast cancer, age 50. Paternal aunt had breast cancer, age 65. Prior Study Comparison: 11/29/2022 Right MG 3D work up w/cad RT, [facility]. 06/27/2023 Right MG 3D diag mammo w/cad RT, [facility]. 01/02/2024 Bilateral MG 3D screening mammo w/cad, [facility]. Tissue Density: There are scattered areas of fibroglandular density. Findings: Analyzed By CAD. Postsurgical posttreatment changes right breast. Grouped calcifications central right breast middle depth remain unchanged. Chronic nodularity on the left. There is no suspicious group of microcalcifications or new suspicious mass in either breast. Overall Assessment: Benign, BI-RAD 2 Management: Screening Mammogram of both breasts in 1 year. Patient should continue monthly self-breast exams. A clinical breast exam by your physician is recommended on an annual basis. This exam should not preclude additional follow-up of suspicious palpable abnormalities. Note on Jaylin scores and lifetime risk: 1. A Jaylin score greater than 3% is considered moderate risk. If this is the case, consider specialist referral to assess eligibility for a risk reducing agent. 2. If overall lifetime risk for the development of breast cancer is 20% or higher, the patient may qualify for future screening with alternating mammogram and breast MRI. [facility], , 01/18/2025 5:36 PM. Electronically signed and approved by: Dylan Butler M.D. Radiologist
== END | disposition home or self-care (01) ==
LOC: RADMAMWWP 10:34
PROVIDERS: ATTEND Family Medicine
DX: Z12.31 Encounter for screening mammogram for malignant neoplasm of breast (principal); R92.323 Mammographic fibroglandular density, bilateral breasts; Z78.0 Asymptomatic menopausal state; Z80.3 Family history of malignant neoplasm of breast
CPT/HCPCS: 77063; 77067